=== PATIENT | male | born 1935 | race Caucasian/White ===

== ENCOUNTER 2016-09-11 12:30 | Outpatient (RCR) | payer MEDICARE, OTHER ==
[~2016-09-11 12:30] MED LIST: 00186-0372-20 IH; ASPIRIN 32325 MG/TAB PO; ASPIRIN 81M81 MG/TA2 PO; B-1100 MG PO; CARDURA 8MG TAB8 MG; CARDURA 8MG TAB8 MG PO; CEFTIN500 MG PO; COZAAR 25MG25 MG/TAB PO; COZAAR 50MG50 MG/TAB PO; FINASTERIDE; FLOMAX 0.40.4 MG/CAP PO; FLONASE NASAL S16 GM NS; FOLBEE PO; GLUCOPHAGE1000 MG PO; IRON325 M1 PO; IRON325 MG PO; K-DUR 10 MEQ T10 MEQ PO; LOPID 600M600 MG/TAB; LOPID 600M600 MG/TAB PO; LOPRESSOR 225 MG/TAB PO; NATURAL E400 IU PO; OFEV150 MG PO; PHENERGAN W/CO120 M1 PO; PLAVIX 75MG TAB75 MG PO; PRINIVIL5 MG PO; PROSCAR 5MG5 MG PO; RT ADVAIR HFA 1112 G IH; RT SPIRIVA18 MCG IH; SINGULAIR 110 MG/TAB PO; TESSALON P100 MG/CAP PO; THEO-24 20200 MG/CAP PO; TOPROL XL 25MG25 MG PO; TYLENOL 500MG500 MG PO; UNABLE; VITRON-C; ZANTAC 300300 MG PO; ZOLOFT 25MG25 MG PO; ZYRTEC 10MG10 MG PO
== END 2016-10-07 08:48 | disposition still patient (30) ==
LOC: MKS.ESL.PT 12:30
DX: J84.10 Pulmonary fibrosis, unspecified (principal)
CPT/HCPCS: G8978-GP; G8979-GP; G8980-GP

== ENCOUNTER 2016-12-14 13:12 | Inpatient (IN) | payer MEDICARE, OTHER ==
[2016-12-14] VITALS (447 sets, daily range): BP systolic 119–142; BP diastolic 35–89; PULSE 60–66; TEMP 97.9–98.2; O2SAT 86–100
[~2016-12-14] VITALS: Ht 172.7 cm; Wt 82.8 kg
[2016-12-14 13:30] LABS: BASO # 0.1 (0.0-0.2); BASO % 0.7 % (0.0-2.0); EOS # 0.4 (0.0-0.7); EOS % 3.8 % (0-4.0); GRAN # 7.7 (1.4-6.5); GRAN % 76.9 % (42.2-75.2); LYMPH # 1.2 (1.2-3.4); LYMPH % 11.6 % (20.0-51.0); MEAN CELL VOLUME 97 fl (80.0-100.0); MEAN CORPUSCULAR HGB CONC 33 g/dl (33.0-37.0); MEAN PLATELET VOLUME 10.6 fl (7.4-10.4); MONO # 0.6 (0.1-0.6); MONO % 6.3 % (1.7-9.3); PLATELET COUNT 208 K/mm3 (130-400); RED BLOOD COUNT 3.68 M/mm3 (4.20-5.60); REDCELL DISTRIBUTION WIDTH-CV 13.4 % (11.5-14.5)
[2016-12-14 13:34] LABS: HEMATOCRIT 35.5 % (42.0-52.0); HEMOGLOBIN 11.6 g/dl (13.5-18.0); MEAN CORPUSCULAR HEMOGLOBIN 32 pg (27.0-31.0)
[2016-12-14 13:42] LABS: ADJUSTED CALCIUM 9.2 mg/dL (8.4-10.2); ALANINE AMINOTRANSFERASE 17 U/L (21-72); ALBUMIN 3.9 gm/dL (3.5-5.0); ALKALINE PHOSPHATASE 68 U/L (50-136); ANION GAP 10 mmol/L (7-16); BILIRUBIN,TOTAL 0.4 mg/dL (0.0-1.0); BLOOD UREA NITROGEN 41 mg/dL (9-20); CALCIUM 9.1 mg/dL (8.4-10.2); CARBON DIOXIDE 15 mmol/L (22-30); CHLORIDE 110 mmol/L (98-107); CREATINE KINASE 60 U/L (55-170); CREATININE, serum 1.73 mg/dL (0.66-1.25); GLUCOSE 157 mg/dL (74-106); LIPASE 87 U/L (23-300); POTASSIUM 5.5 mmol/L (3.4-5.0); SODIUM 135 mmol/L (137-145); TOTAL PROTEIN 7.4 gm/dL (6.4-8.2)
[2016-12-14 13:43] LABS: INR 1.2 (0.8-3.0)
[2016-12-14 13:53] LABS: B-TYPE NATRIURETIC PEPTIDE 4180 pg/mL (0-450)
[2016-12-14 13:54] LABS: TROPONIN-I < 0.012 ng/mL (0.000-0.034)
[2016-12-14] MEDS ORDERED: ZEBETA10 MG PO (14:29)
[2016-12-14] MEDS ORDERED: ASPIRIN 81M81 MG/TA2 PO (14:36)
[2016-12-14] MEDS ORDERED: LOPID 600M600 MG/TAB PO (14:36)
[2016-12-14] MEDS ORDERED: ZANTAC 300300 MG PO (14:37)
[2016-12-14] MEDS ORDERED: PLAVIX 75MG TAB75 MG PO (14:43)
[2016-12-14] MEDS ORDERED: IPRATROPIUM BROM3 M1 IH (14:43)
[2016-12-14] MEDS ORDERED: VITRON-C PO (14:43)
[2016-12-14] MEDS ORDERED: PHENERGAN W/CO120 M1 PO (14:44)
[2016-12-14] MEDS ORDERED: 00186-0372-20 IH (14:44)
[2016-12-14] MEDS ORDERED: SALINE 45 ML45 ML NS (14:45)
[2016-12-14] MEDS ORDERED: ENTRESTO 24 MG1 EACH PO (14:46)
[2016-12-14 17:43] LABS: ARTERIAL BLD GAS O2 SATURATION 95.6 % (92-100); ARTERIAL BLD GAS TCO2 CT 15.8; ARTERIAL BLOOD GAS PO2 83.9 mmHg (80-100); ARTERIAL BLOOD GAS pH 7.36 (7.35-7.45); OXYHEMOGLOBIN 94.9 %
[2016-12-14 17:53] LABS: ALLEN TEST NO; ATS? YES
[2016-12-14] MEDS ORDERED: [UNRECOGNIZED DRUG - OTHER] NAS (18:03)
[2016-12-15] VITALS (759 sets, daily range): BP systolic 109–154; BP diastolic 58–87; PULSE 56–70; TEMP 97.6–98.5; O2SAT 91–100
[2016-12-15 05:47] LABS: BASO # 0.1 (0.0-0.2); BASO % 1.1 % (0.0-2.0); EOS # 0.5 (0.0-0.7); EOS % 6.4 % (0-4.0); GRAN # 5.8 (1.4-6.5); GRAN % 68.6 % (42.2-75.2); HEMATOCRIT 34.1 % (42.0-52.0); HEMOGLOBIN 11.2 g/dl (13.5-18.0); LYMPH # 1.3 (1.2-3.4); LYMPH % 15.6 % (20.0-51.0); MEAN CELL VOLUME 96 fl (80.0-100.0); MEAN CORPUSCULAR HEMOGLOBIN 31 pg (27.0-31.0); MEAN CORPUSCULAR HGB CONC 33 g/dl (33.0-37.0); MEAN PLATELET VOLUME 11.2 fl (7.4-10.4); MONO # 0.7 (0.1-0.6); MONO % 7.7 % (1.7-9.3); PLATELET COUNT 202 K/mm3 (130-400); RED BLOOD COUNT 3.56 M/mm3 (4.20-5.60); REDCELL DISTRIBUTION WIDTH-CV 13.5 % (11.5-14.5); WHITE BLOOD COUNT 8.4 K/mm3 (4.8-10.8)
[2016-12-15 05:57] LABS: CALCIUM 8.9 mg/dL (8.4-10.2); CREATININE, serum 1.55 mg/dL (0.66-1.25); MAGNESIUM 2.2 mg/dL (1.6-2.3); POTASSIUM 5.1 mmol/L (3.4-5.0)
[2016-12-15 06:12] LABS: TROPONIN-I 0.081 ng/mL (0.000-0.034)
[2016-12-15 22:38] LABS: PH 5 (5-8); SQUAMOUS EPITHELIAL 0-2 /hpf; URINE APPEARANCE Clear; URINE BACTERIA None Seen /hpf; URINE BILIRUBIN Negative (NEGATIVE); URINE BLOOD Negative (NEGATIVE); URINE COLOR Yellow; URINE GLUCOSE Negative (NEGATIVE); URINE KETONE Negative (NEGATIVE); URINE RBC 0-2 /hpf; URINE UROBILINOGEN Negative (NEGATIVE); URINE WBC 0-2 /hpf
[2016-12-16 04:06] VITALS: BP 118/72; PULSE 116; PULSE 60; TEMP 97.6
[2016-12-16 07:47] VITALS: BP 120/67; PULSE 58; TEMP 97.8
[2016-12-16 07:47] LABS: CALCIUM 9.1 mg/dL (8.4-10.2); CREATININE, serum 1.43 mg/dL (0.66-1.25); MAGNESIUM 1.8 mg/dL (1.6-2.3); POTASSIUM 5.2 mmol/L (3.4-5.0)
[2016-12-16] MEDS ORDERED: CEPHALEXIN500 M1 PO (11:32)
[2016-12-16] MEDS ORDERED: LIPITOR 40MG TA40 MG PO (11:32)
[2016-12-16] MEDS ORDERED: LASIX 20MG TABL20 MG PO (11:33)
[2016-12-16 12:00] VITALS: BP 117/62; PULSE 57; TEMP 98.2
== END 2016-12-16 14:36 | disposition home or self-care (01) | DRG 227 ==
LOC: COL.ER 13:12 → ICU 14:17 → MEDICAL 12-15 18:32
PROVIDERS: Emergency Medicine; Internal Medicine; Physician Assistant
PROC: 0JH608Z Insertion of Defibrillator Generator into Chest Subcutaneous Tissue and Fascia, Open Approach (ICD-10-PCS; principal; 2016-12-15)
PROC: 02HK3KZ Insertion of Defibrillator Lead into Right Ventricle, Percutaneous Approach (ICD-10-PCS; 2016-12-15)
PROC: 02H63KZ Insertion of Defibrillator Lead into Right Atrium, Percutaneous Approach (ICD-10-PCS; 2016-12-15)
DX: I49.01 Ventricular fibrillation (principal); I13.0 Hypertensive heart and chronic kidney disease with heart failure and stage 1 through stage 4 chronic kidney disease, or unspecified chronic kidney disease; E87.2 Acidosis; I50.22 Chronic systolic (congestive) heart failure; I46.9 Cardiac arrest, cause unspecified; E11.22 Type 2 diabetes mellitus with diabetic chronic kidney disease; N18.3 Chronic kidney disease, stage 3 (moderate); E83.42 Hypomagnesemia; Z95.2 Presence of prosthetic heart valve; J84.112 Idiopathic pulmonary fibrosis; Z85.46 Personal history of malignant neoplasm of prostate; I48.91 Unspecified atrial fibrillation
CPT/HCPCS: 99223-AI; 99233-AI; 99239; C1721; C1894; C1895; C1898; J0690; J1644; J1815; J2250; J3010; J3475; J7030

== ENCOUNTER → 2016-12-21 | Outpatient (CLI) | payer MEDICARE, OTHER ==
[~2016-12-21] MED LIST changes: +CEPHALEXIN500 M1 PO; +ENTRESTO 24 MG1 EACH PO; +IPRATROPIUM BROM3 M1 IH; +LASIX 20MG TABL20 MG PO; +LIPITOR 40MG TA40 MG PO; +SALINE 45 ML45 ML NS; +VITRON-C PO; +ZEBETA10 MG PO; +[UNRECOGNIZED DRUG - OTHER] NAS
[2016-12-21 11:37] LABS: HEMATOCRIT 36.3 % (42.0-52.0); HEMOGLOBIN 11.9 g/dl (13.5-18.0); MEAN CELL VOLUME 97 fl (80.0-100.0); MEAN CORPUSCULAR HEMOGLOBIN 32 pg (27.0-31.0); MEAN CORPUSCULAR HGB CONC 33 g/dl (33.0-37.0); MEAN PLATELET VOLUME 10.6 fl (7.4-10.4); PLATELET COUNT 204 K/mm3 (130-400); RED BLOOD COUNT 3.75 M/mm3 (4.20-5.60); REDCELL DISTRIBUTION WIDTH-CV 13.8 % (11.5-14.5); WHITE BLOOD COUNT 9.1 K/mm3 (4.8-10.8)
[2016-12-21 11:44] LABS: ADJUSTED CALCIUM 9.2 mg/dL (8.4-10.2); ALBUMIN 4.2 gm/dL (3.5-5.0); BILIRUBIN,TOTAL 0.6 mg/dL (0.0-1.0); CALCIUM 9.4 mg/dL (8.4-10.2); CREATININE, serum 2.39 mg/dL (0.66-1.25); POTASSIUM 5.6 mmol/L (3.4-5.0); TOTAL PROTEIN 7.9 gm/dL (6.4-8.2)
== END ==
LOC: COL.LAB 11:01
PROVIDERS: Internal Medicine Interventional Cardiology
DX: R55 Syncope and collapse (principal)

== ENCOUNTER → 2016-12-25 | Outpatient (CLI) | payer MEDICARE, OTHER ==
[2016-12-25 14:42] LABS: CALCIUM 9.1 mg/dL (8.4-10.2); CREATININE, serum 1.67 mg/dL (0.66-1.25); MAGNESIUM 1.5 mg/dL (1.6-2.3); PHOSPHOROUS 3.4 mg/dL (2.5-4.5)
== END ==
LOC: COL.LAB 13:55
PROVIDERS: Physician Assistant
DX: Z01.89 Encounter for other specified special examinations (principal)

== ENCOUNTER 2017-02-08 07:25 | Outpatient (CLI) | payer MEDICARE, OTHER ==
[~2017-02-08] VITALS: Ht 172.7 cm; Wt 76.8 kg
[2017-02-08 07:30] VITALS: BP 120/58; PULSE 72; TEMP 97.6
[2017-02-09 00:25] LABS: CORTISOL BASELINE 19 ug/dL (3-20)
[2017-02-09 00:33] LABS: CORTISOL 3O MINUTES 27 ug/dL (14-25)
== END 2017-02-08 10:02 | disposition home or self-care (01) ==
LOC: EUO 07:25
PROVIDERS: Internal Medicine Interventional Cardiology
DX: I95.9 Hypotension, unspecified (principal); R42 Dizziness and giddiness
CPT/HCPCS: J0834

== ENCOUNTER 2017-04-13 12:30 | Outpatient (RCR) | payer MEDICARE, OTHER | END 2017-04-20 | disposition home or self-care (01) | LOC: MKS.ESL.PT | DX: R53.83 Other fatigue (principal); R53.1 Weakness | CPT/HCPCS: G8978-GP; G8979-GP ==

== ENCOUNTER → 2017-08-03 | Outpatient (REF) ==
[~2017-08-03] MED LIST changes: +ASPIRIN 81M81 MG/TA2 PEG; +ATIVAN 0.50.5 MG/TAB PEG; +ATROVENT I0.2 MG/1 M IH; +ATROVENT NASAL15 ML NS; +DIGITEK0.125 MG PO; +LEVAQUIN 750MG750 M1 PO; +LIPITOR 40MG TA40 MG PEG; +LOPID 600M600 MG/TAB PEG; +NATURAL E400 IU PEG; +NATURAL IRON65 MG PEG; +NATURE'S BLEND100 M2 PEG; +NATURE'S BLEND100 M2 PO; +OFEV150 MG PEG; +PLAVIX 75MG TAB75 MG PEG; +PREDNISONE20 MG PO; +PROMETHAZINE V473 M2 PO; +RT ADVAIR 228 DISKUS IH; +SEROQUEL 2525 MG/TAB PO; +SINGULAIR 110 MG/TAB PEG; +TOPROL XL 50MG50 MG PEG; +TWOCAL HN PEG; +VTAMINC250TA PEG; +ZANTAC 300300 MG PEG; +ZEBETA 5MG5 MG PO; +ZIKS HEMATOGEN1 SG1 PO; +ZOLOFT 50MG50 MG PEG; +ZOLOFT 50MG50 MG PO
[2017-08-03 14:15] LABS: ALBUMIN 3.1 gm/dL (3.5-5.0); CALCIUM 8.5 mg/dL (8.4-10.2); CREATININE, serum 1.21 mg/dL (0.66-1.25); PHOSPHOROUS 3.3 mg/dL (2.5-4.5); POTASSIUM 5.2 mmol/L (3.4-5.0)
== END ==
LOC: ZLAB.STJ 13:59
PROVIDERS: Internal Medicine Nephrology
DX: N18.3 Chronic kidney disease, stage 3 (moderate) (principal)

== ENCOUNTER 2017-08-05 15:09 | Inpatient (IN) | payer MEDICARE, OTHER ==
[2017-08-05] VITALS (323 sets, daily range): BP systolic 94–117; BP diastolic 56–63; PULSE 98–103; TEMP 97.7–98.8; O2SAT 84–99
[~2017-08-05] VITALS: Ht 175.3 cm; Wt 62.6 kg
[~2017-08-05 15:09] MED LIST changes: -ASPIRIN 81M81 MG/TA2 PEG; -ATIVAN 0.50.5 MG/TAB PEG; -ATROVENT I0.2 MG/1 M IH; -LIPITOR 40MG TA40 MG PEG; -LOPID 600M600 MG/TAB PEG; -NATURAL E400 IU PEG; -NATURAL IRON65 MG PEG; -NATURE'S BLEND100 M2 PEG; -OFEV150 MG PEG; -PLAVIX 75MG TAB75 MG PEG; -SEROQUEL 2525 MG/TAB PO; -SINGULAIR 110 MG/TAB PEG; -TOPROL XL 50MG50 MG PEG; -TWOCAL HN PEG; -VTAMINC250TA PEG; -ZANTAC 300300 MG PEG; -ZOLOFT 50MG50 MG PEG
[2017-08-05 16:33] LABS: MEAN CELL VOLUME 92 fl (80.0-100.0); MEAN CORPUSCULAR HGB CONC 34 g/dl (33.0-37.0); MEAN PLATELET VOLUME 10.5 fl (7.4-10.4); PLATELET COUNT 260 K/mm3 (130-400); RED BLOOD COUNT 3.56 M/mm3 (4.20-5.60); REDCELL DISTRIBUTION WIDTH-CV 13.8 % (11.5-14.5)
[2017-08-05 16:35] LABS: HEMATOCRIT 32.6 % (42.0-52.0); HEMOGLOBIN 11.1 g/dl (13.5-18.0); MEAN CORPUSCULAR HEMOGLOBIN 31 pg (27.0-31.0)
[2017-08-05 16:43] LABS: ALBUMIN 3.1 gm/dL (3.5-5.0); BILIRUBIN,TOTAL 0.3 mg/dL (0.0-1.0); CALCIUM 8.5 mg/dL (8.4-10.2); CREATININE, serum 1.4 mg/dL (0.66-1.25); INR 1.4 (0.8-3.0); POTASSIUM 4.4 mmol/L (3.4-5.0); PROTHROMBIN TIME 15.7 SECONDS (9.7-12.8); TOTAL PROTEIN 7.1 gm/dL (6.4-8.2)
[2017-08-05 16:58] LABS: TROPONIN-I 0.253 ng/mL (0.000-0.034)
[2017-08-05 17:12] LABS: BAND 36 % (0-10); LYMPHOCYTE 3 % (20.0-51.0); NEUTROPHILS 59 % (42.0-75.2); PLATELET ESTIMATE NORMAL (NORMAL)
[2017-08-05] MEDS ORDERED: TOPROL XL 50MG50 MG PEG (17:33)
[2017-08-05] MEDS ORDERED: ATROVENT I0.2 MG/1 M IH (17:36)
[2017-08-05] MEDS ORDERED: ASPIRIN 81M81 MG/TA2 PEG (17:37)
[2017-08-05] MEDS ORDERED: VTAMINC250TA PEG (17:39)
[2017-08-05] MEDS ORDERED: NATURAL IRON65 MG PEG (17:40)
[2017-08-05] MEDS ORDERED: SINGULAIR 110 MG/TAB PEG (17:40)
[2017-08-05] MEDS ORDERED: OFEV150 MG PEG (17:41)
[2017-08-05] MEDS ORDERED: ZANTAC 300300 MG PEG (17:41)
[2017-08-05] MEDS ORDERED: ZOLOFT 50MG50 MG PEG (17:44)
[2017-08-05] MEDS ORDERED: NATURE'S BLEND100 M2 PEG (17:44)
[2017-08-05] MEDS ORDERED: NATURAL E400 IU PEG (17:45)
[2017-08-05] MEDS ORDERED: TWOCAL HN PEG (17:47)
[2017-08-05] MEDS ORDERED: LIPITOR 40MG TA40 MG PEG (17:48)
[2017-08-05] MEDS ORDERED: PLAVIX 75MG TAB75 MG PEG (17:49)
[2017-08-05] MEDS ORDERED: LOPID 600M600 MG/TAB PEG (17:50)
[2017-08-05] MEDS ORDERED: ZANTAC 300300 MG PO (17:50)
[2017-08-05] MEDS ORDERED: SEROQUEL 2525 MG/TAB PO (17:51)
[2017-08-05] MEDS ORDERED: ATIVAN 0.50.5 MG/TAB PEG (17:52)
[2017-08-05 20:17] LABS: HEMATOCRIT 30.1 % (42.0-52.0); HEMOGLOBIN 10.2 g/dl (13.5-18.0)
[2017-08-06] VITALS (531 sets, daily range): BP systolic 92–107; BP diastolic 62–81; PULSE 65–110; TEMP 97.7–100.1; O2SAT 80–100
[2017-08-06 06:41] LABS: BASO # 0.1 (0.0-0.2); BASO % 0.5 % (0.0-2.0); EOS % 0.1 % (0-4.0); GRAN # 9.4 (1.4-6.5); LYMPH # 0.5 (1.2-3.4); LYMPH % 5.2 % (20.0-51.0); MEAN CELL VOLUME 93 fl (80.0-100.0); MEAN CORPUSCULAR HGB CONC 33 g/dl (33.0-37.0); MEAN PLATELET VOLUME 11.3 fl (7.4-10.4); MONO # 0.2 (0.1-0.6); MONO % 2.1 % (1.7-9.3); PLATELET COUNT 245 K/mm3 (130-400)
[2017-08-06 06:46] LABS: HEMATOCRIT 30.8 % (42.0-52.0); HEMOGLOBIN 10.2 g/dl (13.5-18.0); MEAN CORPUSCULAR HEMOGLOBIN 31 pg (27.0-31.0)
[2017-08-06 06:49] LABS: CALCIUM 8.6 mg/dL (8.4-10.2); CREATININE, serum 1.56 mg/dL (0.66-1.25); POTASSIUM 4.2 mmol/L (3.4-5.0)
[2017-08-06 07:08] LABS: TROPONIN-I 4.05 ng/mL (0.000-0.034)
[2017-08-07 04:14] VITALS: BP 100/50; PULSE 90; TEMP 97.1
[2017-08-07 06:05] LABS: MEAN CELL VOLUME 92 fl (80.0-100.0); MEAN CORPUSCULAR HGB CONC 33 g/dl (33.0-37.0); PLATELET COUNT 250 K/mm3 (130-400); RED BLOOD COUNT 3.29 M/mm3 (4.20-5.60); REDCELL DISTRIBUTION WIDTH-CV 14.2 % (11.5-14.5)
[2017-08-07 06:11] LABS: HEMATOCRIT 30.4 % (42.0-52.0); MEAN CORPUSCULAR HEMOGLOBIN 30 pg (27.0-31.0)
[2017-08-07 06:15] LABS: CALCIUM 8.6 mg/dL (8.4-10.2); CREATININE, serum 1.64 mg/dL (0.66-1.25); PHOSPHOROUS 4.3 mg/dL (2.5-4.5)
[2017-08-07 06:34] LABS: TROPONIN-I 6.62 ng/mL (0.000-0.034)
[2017-08-07 07:33] LABS: BAND 20 % (0-10); EOSINOPHIL 3 % (0-4); LYMPHOCYTE 4 % (20.0-51.0); NEUTROPHILS 70 % (42.0-75.2); PLATELET ESTIMATE NORMAL (NORMAL)
[2017-08-07 08:00] VITALS: BP 105/57; PULSE 90; TEMP 98.1
[2017-08-07 12:00] VITALS: BP 105/64; PULSE 68; TEMP 98.2
[2017-08-07 17:44] VITALS: BP 110/65; PULSE 86; TEMP 99
[2017-08-07 19:53] VITALS: BP 116/61; PULSE 99; TEMP 97.8
[2017-08-08 00:05] VITALS: BP 107/70; PULSE 72; TEMP 97.7
[2017-08-08 04:55] VITALS: BP 117/60; PULSE 59; TEMP 97.8
[2017-08-08 10:13] VITALS: BP 124/57; PULSE 87
[2017-08-08 14:26] VITALS: BP 122/65; PULSE 82; TEMP 97.8
[2017-08-08 21:07] VITALS: BP 110/66; PULSE 78; TEMP 96.8
[2017-08-09 03:36] VITALS: BP 107/78; PULSE 96
[2017-08-09 10:03] VITALS: BP 107/66; PULSE 77; TEMP 97.4
[2017-08-09] MEDS ORDERED: TRANSDERM-0.5 MG/21 TD (10:09)
[2017-08-09] MEDS ORDERED: ROXANOL 20MG20 MG/ML SL (10:09)
[2017-08-09] MEDS ORDERED: ATIVAN 0.50.5 MG/TAB PEG (10:09)
[2017-08-09 14:37] VITALS: BP 130/58; PULSE 62; TEMP 97.5
[2017-08-09 18:21] VITALS: BP 110/69; PULSE 83; TEMP 97.6
[2017-08-09 20:43] VITALS: BP 90/47; PULSE 80; TEMP 98.2
[2017-08-10 01:01] VITALS: BP 112/60; PULSE 44; TEMP 97.5
[2017-08-10] MEDS ORDERED: LOPRESSOR 225 MG/TAB PO (12:09)
[2017-08-10] MEDS ORDERED: DEEP SEA 45 ML45 ML NS (12:09)
[2017-08-10 12:22] VITALS: BP 112/60; PULSE 44; TEMP 97.5
== END 2017-08-10 15:25 | disposition hospice, inpatient (51) | DRG 280 ==
LOC: COL.ER 15:09 → ICU 17:27 → SURG 08-07 16:02
PROVIDERS: Emergency Medicine; Family Medicine
DX: I21.4 Non-ST elevation (NSTEMI) myocardial infarction (principal); J69.0 Pneumonitis due to inhalation of food and vomit; I13.0 Hypertensive heart and chronic kidney disease with heart failure and stage 1 through stage 4 chronic kidney disease, or unspecified chronic kidney disease; I50.22 Chronic systolic (congestive) heart failure; Z51.5 Encounter for palliative care; I69.351 Hemiplegia and hemiparesis following cerebral infarction affecting right dominant side; E44.0 Moderate protein-calorie malnutrition; I47.1 Supraventricular tachycardia; Z66 Do not resuscitate; R04.0 Epistaxis; N18.3 Chronic kidney disease, stage 3 (moderate); E11.22 Type 2 diabetes mellitus with diabetic chronic kidney disease; Z95.2 Presence of prosthetic heart valve; I69.320 Aphasia following cerebral infarction; I69.391 Dysphagia following cerebral infarction; R13.10 Dysphagia, unspecified; I35.0 Nonrheumatic aortic (valve) stenosis; Z95.810 Presence of automatic (implantable) cardiac defibrillator; Z85.46 Personal history of malignant neoplasm of prostate; J84.10 Pulmonary fibrosis, unspecified; Z87.891 Personal history of nicotine dependence
CPT/HCPCS: 99223-AI; 99232-AI; 99233-AI; 99239; J3230

== ENCOUNTER → 2018-12-08 10:00 | Outpatient (RCR) | payer MEDICARE, OTHER ==
[~2018-12-08 10:00] MED LIST changes: +ASPIRIN 81M81 MG/TA2 PEG; +ATIVAN 0.50.5 MG/TAB PEG; +ATROVENT I0.2 MG/1 M IH; +DEEP SEA 45 ML45 ML NS; +LIPITOR 40MG TA40 MG PEG; +LOPID 600M600 MG/TAB PEG; +NATURAL E400 IU PEG; +NATURAL IRON65 MG PEG; +NATURE'S BLEND100 M2 PEG; +OFEV150 MG PEG; +PLAVIX 75MG TAB75 MG PEG; +ROXANOL 20MG20 MG/ML SL; +SEROQUEL 2525 MG/TAB PO; +SINGULAIR 110 MG/TAB PEG; +TOPROL XL 50MG50 MG PEG; +TRANSDERM-0.5 MG/21 TD; +TWOCAL HN PEG; +VTAMINC250TA PEG; +ZANTAC 300300 MG PEG; +ZOLOFT 50MG50 MG PEG
== END | disposition home or self-care (01) ==
LOC: MKS.ESL.PT 04-21 10:00
DX: J84.10 Pulmonary fibrosis, unspecified (principal); R53.1 Weakness; R53.83 Other fatigue
CPT/HCPCS: G8978-GP; G8979-GP